=== PATIENT | female | born 1985 | race Caucasian/White ===

== ENCOUNTER 2023-11-12 03:27 | Inpatient (IN) ==
[2023-11-12] MEDS ORDERED: Lactated Ringers 1000 ml BAG 1,000 ML IV ONE (03:46)
[2023-11-12] MEDS ORDERED: Buffered Lidocaine 1% SYRIN 1 ml INTRADERM ONE (03:46)
[2023-11-12] MEDS ORDERED: Lidocaine 1% VIAL 10 MG/ML 30 ML VIAL INJ PRN (03:46)
[2023-11-12] MEDS ORDERED: Lactated Ringers 1000 ml BAG 1,000 ML IV SCH ×2 (04:00→07:00)
[2023-11-12 04:08] LABS: Hematocrit 36.1 % (35-45); Hemoglobin 12.5 g/dL (11.5-14.3); Mean Corpuscular Hemoglobin 30.8 pg (27-33); Mean Corpuscular Hgb Conc 34.7 g/dL (31-36); Mean Corpuscular Volume 88.8 fL (80-97); Mean Platelet Volume 8.6 fL (7.5-11.2); Platelet Count 283 10^3/uL (150-450); Red Blood Count 4.06 10^6/uL (3.63-4.92); Red Cell Distribution Width 15.4 % (12-17); White Blood Count 14.8 10^3/uL (3.8-11.8)
[2023-11-12] MEDS ORDERED: Oxytocin in LR 20,000 MILLI.UNIT/1,000 ML BAG IV ONE (04:55)
[2023-11-12] MEDS ORDERED: Methylergonovine 0.2 mg AMPULE 1 ml AMP ONE (05:04)
[2023-11-12 05:08] LABS: ABS Basophils 0.1 10^3/uL (0.0-0.1); ABS Eosinophils 0.2 10^3/uL (0.0-0.5); ABS Lymphocytes 3.1 10^3/uL (1.0-4.8); ABS Monocytes 1.6 10^3/uL (0.0-0.9); ABS Neutrophils 9.8 10^3/uL (1.5-7.6); ABS Nucleated RBC 0.01 10^3/ul; Eosinophil % 1.6 %; Lymphocyte % 21.2 %; Nucleated Red Blood Cells % 0.1 %/100WBC (0.0-0.8)
[2023-11-12] MEDS ORDERED: Glycerin ADULT 2.4 gm SUPP PR PRN (06:31)
[2023-11-12] MEDS ORDERED: Methylergonovine 0.2 mg AMPULE 1 ml AMP IM ONE (06:31)
[2023-11-12] MEDS ORDERED: Oxytocin in LR 20,000 MILLI.UNIT/1,000 ML BAG IV SCH (06:35)
[2023-11-12] MEDS: Witch Hazel PAD JAR TOPICAL PRN (07:26)
[2023-11-12] MEDS: Dibucaine 1% OINT 28.35 GM TUBE PR PRN (07:26)
[2023-11-12] MEDS: CMCS: Vilazodone 40 mg TAB (NF) PO SCH (21:44)
[2023-11-13] MEDS: Witch Hazel PAD JAR TOPICAL PRN (00:19)
[2023-11-13] MEDS: Dibucaine 1% OINT 28.35 GM TUBE PR PRN (00:19)
[2023-11-13 07:19] LABS: ABS Eosinophils 0.1 10^3/uL (0.0-0.5); ABS Lymphocytes 1.8 10^3/uL (1.0-4.8); ABS Monocytes 1.2 10^3/uL (0.0-0.9); ABS Neutrophils 9.4 10^3/uL (1.5-7.6); Eosinophil % 0.8 %; Hematocrit 28.8 % (35-45); Lymphocyte % 14.5 %; Mean Corpuscular Hemoglobin 30.9 pg (27-33); Mean Corpuscular Hgb Conc 34.7 g/dL (31-36); Mean Corpuscular Volume 89.1 fL (80-97); Platelet Count 235 10^3/uL (150-450); Red Blood Count 3.23 10^6/uL (3.63-4.92); Red Cell Distribution Width 15.4 % (12-17); White Blood Count 12.5 10^3/uL (3.8-11.8)
[2023-11-13] MEDS: CMCS: Vilazodone 40 mg TAB (NF) PO SCH (20:51)
[2023-11-14] MEDS: Dibucaine 1% OINT 28.35 GM TUBE PR PRN (08:08)
[2023-11-14] MEDS: Witch Hazel PAD JAR TOPICAL PRN (08:08)
[2023-11-14 09:20] VITALS: BP 120/70
== END 2023-11-14 12:27 | disposition home or self-care (01) | DRG 807 ==
LOC: MCHOBOUT 03:27 → MCHOB 03:47
PROVIDERS: ADMIT Midwife; ATTEND Midwife